=== PATIENT | male | born 1945 | race Caucasian/White ===

== ENCOUNTER → 2020-04-01 08:27 | Outpatient (CLI) | payer MEDICARE, BC ==
[2020-04-01 08:57] LABS: BASOPHILS 0.4 % (0-2); HEMATOCRIT 44.1 % (42.0-54.0); HEMOGLOBIN 14.5 g/dL (13.5-17.5); IMMATURE GRANULOCYTES 0.3 % (0-5); LYMPHOCYTES 19.2 % (15-50); MCH 30.8 pg (26.0-34.0); MCHC 32.9 g/dL (31.0-37.0); MCV 93.6 fL (80.0-100.0); MONOCYTES 8.7 % (2-11); NEUTROPHILS 67.4 % (40-80); PLATELET COUNT 193 10x3/uL (130-400); RBC 4.71 10x6/uL (4.20-6.10); RDW 12.9 % (11.5-14.5)
[2020-04-01 09:08] LABS: ANION GAP 7.3 mmol/L (8-16); CALCIUM 8.9 mg/dL (8.5-10.1); CARBON DIOXIDE 32.6 mmol/L (21.0-32.0); CREATININE - SERUM 1.3 mg/dL (0.6-1.3); POTASSIUM - SERUM 3.9 mmol/L (3.5-5.1)
[2020-04-01 09:17] LABS: PROTIME 13.1 SECONDS (11.6-15.0)
[2020-04-01 09:18] LABS: APTT 25.3 SECONDS (22.8-39.4)
== END | disposition home or self-care (01) ==
LOC: D.SP 08:27 → D.RAD 11:00 → D.SP 11:00
PROVIDERS: Specialist; ATTEND Surgery
DX: M79.605 Pain in left leg (principal); I83.893 Varicose veins of bilateral lower extremities with other complications; I83.813 Varicose veins of bilateral lower extremities with pain